=== PATIENT | female | born 1960 | race Caucasian/White ===

== ENCOUNTER 2019-05-24 09:31 | Outpatient (CLI) | payer OTHER ==
[2019-05-24] VITALS (9 sets, daily range): BP systolic 121–158; BP diastolic 55–87; PULSE 55–78
[~2019-05-24] VITALS: Ht 157.5 cm; Wt 102.7 kg
[~2019-05-24 09:31] MED LIST: NEURONTIN300 MG/CAP PO
[2019-05-24] MEDS ORDERED: VITAMIN D 1001000 IU PO (09:47)
[2019-05-24] MEDS ORDERED: OSCAL 500 TAB500 MG PO (09:48)
--- NOTE | 2019-05-24 10:50 | NUR ---
Report from Amelia ERAZO. Bandaid to middle back CD&I. Denies pain at this time. VSS
--- NOTE | 2019-05-24 11:11 | NUR ---
Red top lab drawn by lab. Tea given to drink and teaching done about drinking and/or eating caffiene rest of day. bedside. VSS
[2019-05-24 11:25] LABS: GLUCOSE,CSF 56 mg/dL (40-70); TOTAL PROTEIN,CSF 38 mg/dL (15-45)
[2019-05-24 12:06] LABS: CSF APPEARANCE CLEAR; CSF COLOR COLORLESS
[2019-05-24 12:08] LABS: CSF RBC 161 /mm3 (0-0)
[2019-05-24 12:09] LABS: CSF MONONUCLEAR 94 % (70-100); CSF POLYMORPHONUCLEAR 6 % (0-6)
--- NOTE | 2019-05-24 12:50 | NUR ---
Discharge instructions given and ambulated with pt/ to [facility] Wednesday
[2019-05-27 09:32] LABS: ALBUMIN CSF 19.9 mg/dL (<=27.0)
[2019-05-27 09:56] LABS: CSF IGG/ALBUMIN 0.16 (<=0.21); CSF,IGG 3.1 mg/dL (<=8.1)
[2019-05-27 10:06] LABS: CSF-IGG INDEX 0.46 (<=0.85); IGG/ALBUMIN SERUM 0.35 (<=0.40)
== END 2019-05-24 12:50 | disposition home or self-care (01) ==
LOC: COL.RAD 09:31
PROVIDERS: Psychiatry & Neurology Neurology
DX: R51 Headache (principal)

== ENCOUNTER → 2019-07-03 | Outpatient (CLI) | payer OTHER ==
[~2019-07-03] MED LIST changes: +OSCAL 500 TAB500 MG PO; +VITAMIN D 1001000 IU PO
== END ==
LOC: COL.RAD 05:58
DX: I67.7 Cerebral arteritis, not elsewhere classified (principal); M48.02 Spinal stenosis, cervical region; R20.2 Paresthesia of skin; R51 Headache; M54.2 Cervicalgia
CPT/HCPCS: A9585

== ENCOUNTER 2020-04-26 08:16 | Day surgery (SDC) | payer OTHER ==
[~2020-04-26] VITALS: Ht 157.5 cm; Wt 95.7 kg
[2020-04-26 09:10] VITALS: BP 138/74; PULSE 66; TEMP 97.9
[2020-04-26] MEDS ORDERED: ROBAXIN 50500 MG/TAB PO (09:10)
[2020-04-26 10:40] VITALS: BP 126/70; PULSE 63
--- NOTE | 2020-04-26 10:40 | NUR ---
PATIENT TO [facility]OVERY BAY 7 POST PROCEDURE VIA CART BY RN. AMBULATORY TO CHAIR WITH ASSIST OF ONE. MADE COMFORTABLE IN CHAIR. WARM BLANKETS GIVEN. PATIENT GIVEN SODA AND MUFFIN. TOLERATES WITHOUT DIFFICULTY. NO COMPLAINTS OF PAIN.
--- NOTE | 2020-04-26 10:47 | NUR ---
AT PATIENT BEDSIDE.
[2020-04-26 10:55] VITALS: BP 122/75; PULSE 67
[2020-04-26 11:10] VITALS: BP 132/65; PULSE 58
--- NOTE | 2020-04-26 11:38 | NUR ---
DISMISSAL INSTRUCTIONS GIVEN. VERBAL REVIEW AND HARD COPIES GIVEN. PATIENT GIVES VERBAL UNDERSTANDING. DENIES QUESTIONS.
[2020-04-26 11:40] VITALS: BP 113/60; PULSE 65
--- NOTE | 2020-04-26 11:40 | NUR ---
IV REMOVED FROM RIGHT HAND. NO REDNESS OR SWELLING.
--- NOTE | 2020-04-26 11:47 | NUR ---
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
== END 2020-04-26 11:47 | disposition home or self-care (01) ==
LOC: SDCO 08:16
DX: D12.4 Benign neoplasm of descending colon (principal); K92.1 Melena; K59.00 Constipation, unspecified; E66.9 Obesity, unspecified; Z87.891 Personal history of nicotine dependence; Z68.38 Body mass index [BMI] 38.0-38.9, adult; Z88.1 Allergy status to other antibiotic agents; M19.90 Unspecified osteoarthritis, unspecified site; Z20.822 Contact with and (suspected) exposure to COVID-19; K64.0 First degree hemorrhoids; K62.89 Other specified diseases of anus and rectum
CPT/HCPCS: J2704; J3010; J7120